=== PATIENT | female | born 2000 | race Caucasian/White ===

== ENCOUNTER 2024-03-26 11:06 | Outpatient (AMB) | payer OTHER, SELFPAY ==
--- OUTSIDE RECORDS SUMMARY | 2024-03-26 11:08 | XMS_ITS ---
Author Organization [facility] Address [address] [place] [address] Care Team Providers Care Measurement And Sensing Technician Name Role Phone Anna Falk Primary Care Provider UnavailDarleen Hui Unavailable [phone] REASON FOR VISIT Cancel Encounters Encounter Location Date Provider Diagnosis [facility] [address] [place] [address] 02/09/2024 Darleen Fair Plan Of Treatment No Information Progress Notes * Shakir KIMemeterioonDOB:2000 (23 yo F)Acc No.[id number]:02/09/2024 Patient:?Shakir Kimyson :2000???Age:23 Y???Sex:Female Address[address] [place], [address] * true * Date:? Generated for Ishi britney/Trish/eTransmitting on:?03/26/2024 11:07 AM EST
--- OUTSIDE RECORDS SUMMARY | 2024-03-26 11:08 | XMS_ITS | Patient Health Record ---
Author Organization [facility] Address [address] [place] [address] Care Team Providers Care Cushion Stuffer Name Role Phone Anna Falk Primary Care Provider Unavailab Darleen Mishra Unavailable [phone] Dmitriy Malik Unavailable [phone] Allergies Allergen (clinical drug ingredient) Drug/Non Drug Allergy documented on EMR Reaction Allergy Type Onset Date Status amoxicillin / clavulanate Augmentin Unknown Drug Allergy Active Reason For Referral No Information Medications Medication SIG (Take, Route, Frequency, Duration) Notes Start Date End Date Status metFORMIN HCl 500 MG 1 tablet with a dav l Orally Once a day for 30 day(s) Active Sertraline HCl 25 MG 1 tablet Orally Onc e a day for 30 day(s) Active Doxycycline Monohydrate 100 MG 1 capsule Orally Once a day for 10 days 01/26/2024 Active Social History Tobacco Use: Social History Observation Description Date Details (start date - stop date) Never Smoker NA - NA Tobacco Use/Smoking Question Answer Notes Are you a: nonsmoker Additional Findings: Tobacco Non-User Current no n-smoker Alcohol Screen Question Answer Notes Did you have a drink containing alcohol in the p ast year? No Points 0 Interpretation Negative Tobacco use other than smoking: Question Answer Notes Are you an other tobacco user? No Problems Problem Type SNOMED Code ICD Code Onset Dates Problem Status W/U Status Risk Notes Problem 161995179 Type 2 diabetes mellitus without complication, without long-term current use of insulin (E11.9) Active confirmed Vital Signs Height 5ft 3in in 01/26/2024 Weight 250 lbs 01/26/2024 BMI 44.28 kg/m2 01/26/2024 Encounters Encounter Location Date Provider Diagnosis [facility] [address] [address] 01/26/2024 Dmitriy Malik Cellulitis of left toe L03.032 and Abscess of toe of left foot L02.[address] [facility] [address] 02/09/2024 Darleen Fair Assessments Encounter Date Diagnosis (ICD Code) Assessment Notes Treatment Notes Treatment Clinical Notes Section Notes 01/26/2024 Cellulitis of left toe (ICD-10 - L03.032) 01/26/2024 Abscess of toe of left foot (ICD-10 - L02.612) Plan Of Treatment Pending Test Test Name Order Date X ray : Foot, right 3V 12/18/2021 Insurance Providers Payer Name Payer Address Payer Phone Subscriber Number Group Number Insured Name Patient Relationship to Insured Coverage Start Date Coverage End Date [employer] [address] [place] [phone] [id number] Shayy Kim Self - patient is the insured Medical (General) History Medical History History ICD Code Anxiety Depression type II diabetes Headaches/Migraines chronic sinusitis Surgical History Surgery Date(Month/Year) Hospitalization History Reason Date(Month/Year) [facility] (child 11/03
--- OUTSIDE RECORDS SUMMARY | 2024-03-26 11:08 | XMS_ITS ---
Author Organization [facility] Address [address] [place] [address] Care Team Providers Care Marketing Operations Intern Name Role Phone Anna Falk Primary Care Provider Unavailab Darleen Mishra Unavailable [phone] Dmitriy Malik Unavailable [phone] Allergies Allergen (clinical drug ingredient) Drug/Non Drug Allergy documented on EMR Reaction Allergy Type Onset Date Status amoxicillin / clavulanate Augmentin Unknown Drug Allergy Active REASON FOR VISIT pcp-01/2023, Possible Infection Medications Medication SIG (Take, Route, Frequency, Duration) [...] Are you an other tobacco user? No Vital Signs Height 5ft 3in in 01/26/2024 Weight 250 lbs 01/26/2024 BMI 44.28 kg/m2 01/26/2024 Encounters Encounter Location Date Provider Diagnosis [facility] [address] [place] [address] 01/26/2024 Dmitriy Malik Cellulitis of left toe L03.032 and Abscess of toe of left foot L02.612 Assessments Encounter Date Diagnosis (ICD Code) Assessment Notes Treatment Notes Treatment Clinical Notes Section Notes 01/26/2024 Cellulitis of left toe (ICD-10 - L03.032) 01/26/2024 Abscess of toe of left foot (ICD-10 - L02.612) Plan Of Treatment Medication Medication Name Sig Start Date Stop Date Notes Doxycycline Monohydrate 100 MG 1 capsule Orally Once a day for 10 days 01/26/2024 Next Appt Details Follow Up: 2 Weeks, Reason: Procedure Notes * Category Sub-Category Detail Notes Abscess incision and drainage Anesthesia 2% Lidocaine local anesthesic Location Medial nail border, TA Procedure A fine sterile eleva tor was used to loosen the eponychium, nail bed, nail plate and groove. A sterile nail splinter was then used to longitudinally section the nail. This section was removed. Any infected, devitilized or granulation tissue was removed. No underlying bone was identified. Bacitracin and sterile dressings applied, local wound care instructions were dispensed. Patient was informed of both conservative and future surgical procedures to prevent recurrence Progress Notes * JULIOSheaOB:2000 (23 yo F)Acc No.[id number]:01/26/2024 Progress Note Patient:?Shayy Kim Provider:?Dmitriy KingOMI :2000???Age:23 Y???Sex:Female D ate:01/26/2024 Address:[address] [place], [place] [id number] Pcp:Anna Falk Subjective: * Chief Complaints: * ???Pcp-3Possible Infec tion * HPI: ???Skin problems:?Nature:?tender, throbbing, swelling, redness.?Location:??Left, 1st.?Duration:?a week.?Onset/Cause:?stubbed toe.? * ROS:?General/Constitutional:?Nausea?denies.?Vomiting?denies.?Hunger Thirst?denies.?Loss appetite?denies.?Chills?denies.?Fatigue?denies.?Fever?denies.?Night Sweats?denies.?Unexplained weight loss?denies.?Unexplained weight gain?denies.?HEENTM:?Dentures?denies.?Dizziness?denies.?Glasses/contacts?denies.?Retinopathy?de nies.?Blurred/double vision?denies.?TMJ?denies.?Discharge/drainage?denies.?Implants?denies.?Sore throat?denies.?Dental implants?denies.?Hard of hearing ?denies.?Difficulty chewing/swallowing/speaking?denies.?Nose bleeds?denies.?Sore mouth?denies.?Respiratory:?On Oxygen?denies.?Pneumonia/pleurisy?denies.?Bronchitis?denies.?Emphysema?denies.?C oughing?denies.?Cough blood?denies.?Shortness of breath?denies.?Wheezing?denies.?Cardiovascular:?Pacemaker?denies.?MVP?denies.?WPW?denies.?CHF?denies.?Heart attack?denies.?Septal defect?denies.?Rapid beat?denies.?Chest pain ?denies.?Atrial Fib.?denies.?Murmur/Palpitations?denies.?Gastrointestinal:?Hemorrhoids?denies.?Stomach/Abdominal pain?denies.?Dark blood stool?denies.?Irritable bowel ?denies.?Constipation?denies.?Diarrhea?denies.?Hematology:?Swelling?denies.?Clots?denies.?Varicose Veins?denies.?Bruising?denies.?Bleeding problem?denies.?Genitourinary:?Blood urine?denies.?Frequent/Painfu/urination/bladder control?denies.?Kidney stones?denies.?Infection (UTI)?denies.?Nephropathy?denies.?sex trans dis (STD)?denies.?Prostate?denies.?Musculoskeletal:?Hammertoes?denies.?Bunions?denies.?Back Pain?admits.?Muscle Cramps/ Resting?denies.?Muscle cramps / walking?admits.?Generalized aches and pains?admits.?Weakness?denies.?Integ.:?[place]?denies.?Scars?denies.?Corns/calluses?denies.?Ingrown nails?admits.?Painful nails?admits.?Open Sores?denies.?Rashes?denies.?Neurologic:?Difficulty sleeping?denies.?Brain disorder?denies.?Numbness?denies.?Balance trouble?denies.?Confusion?denies.?Fainting/blackouts?denies.?Tingling?denies.?Tr emors?denies.? * Medical History:? * Surgical History:?Radha medeiros Surgical History * Hospitalization/Major Diagno stic Procedure:?[facility] (child 11/04/2023 * Family History:?Mother: hermelinda mo, foot problems, diagnosed with Other specified conditions influencing health status.?Father: alive, diagnosed with Diabetic - NIDDM, Unspecified essential hypertension.?Daughter(s): alive.?Paternal Grand Father: diagnosed with Diabetic - NIDDM.? * Social History:?Tobacco Use:?Tobacco Use/Smoking?Are you a:?nonsmoker ?Additional Findings: Tobacco Non-User?Current non-smoker ?Tobacco use other than smoking?Are you an other tobacco user??No ???Drugs/Alcohol:?Drugs?Have you used drugs other than those for medical reasons in the past 12 months??No ?Alcohol Screen?Did you have a drink containing alcohol in the past year??No ?Points?0 ?Interpretation?Negative ???Miscellaneous:?Caffeine: yes, frequency: , 1-2 cups per day. ?Children: yes, 2. ?no Exercise. ?Marital status: single. ?Occupation: Student. * Medications:?TakingmetFORMIN HCl 500 MG Tablet 1 tablet with a meal Orally Once a daySertraline HCl 25 MG Tablet 1 tablet Orally Once a dayMedication List reviewed and reconciled with the patientTaking metFORMIN HCl 500 MG Tablet 1 tablet with a meal Orally Once a dayTaking Sertraline HCl 25 MG Tablet 1 tablet Orally Once a dayMedication List reviewed and reconciled with the patient * Allergies:?Augmentinyes[Joao rgies Verified] Objective: * Vitals:?Ht: 5ft 3in, Wt:250, BMI:44.28, Shoe size: 9.5W, BS: 117, Ht-cm: 160.02 cm, Wt-k.4 kg. * Examination: ???Ophthalmology Referral: ?DIABETES EYE EXAM?Abscess/infected nail: ?INSPECTION? Reveals nail incurvation, pain on palpation, groove laceration, inflammation, malodor, localized cellulitis, and purulent abscess with pre- operative size of approximately ( 1-2 ) mm square without exposed bone, Medial nail border, TA.? Assessment: * Assessment: 1.?Cellulitis of left toe - L03.032 (Primary)?2.?Abscess of toe of left foot - L02.612? Plan: * Treatment: * Procedures:?Abscess incision and drainage:?Location?Medial nail border, TA.?Anesthesia?2% Lidocaine local anesthesic.?Procedure?A fine sterile elevator was used to loosen the eponychium, nail bed, nail plate and groove. A sterile nail splinter was then used to longitudinally section the nail. This section was removed. Any infected, devitilized or granulation tissue was removed. No underlying bone was identified. Bacitracin and sterile dressings applied, local wound care instructions were dispensed. Patient was informed of both conservative and future surgical procedures to prevent recurrence.? * Procedure Codes:?23607 DRAIN AGE OF SKIN ABSCESS, Modifiers: TA * Follow Up:?2 Weeks * Images: * Sign off status: Completed true * Provider:?Dmitriy Malik DPM Date:? 024 Generated for Sridhar tan/Trish/Kayceeitting on:?03/26/2024 11:07 AM EST History and Physical Notes * HPI (History of Present Illness) Category Sub-Category Detail Notes Category Not es Skin problems Nature: tender, throbbing, swelling , redness Location: Left, 1st Duration: a week Onset/Cause: stubbed toe Examination Category Sub-Category Detail Notes Category Not es Ophthalmology Referral DIABETES EYE EXAM Diabeti c Retinopathy Screening:: Yes Findings of Diabetic Eye Exam:: no retin opathy Abscess/infected nail INSPECTION Reveals na il incurvation, pain on palpation, groove laceration, inflammation, malodor, localized cellulitis, and purulent abscess with pre-operative size of approximately ( 1-2 ) mm square without exposed bone, Medial nail border, TA
--- NOTE | 2024-03-26 11:09 | A.OFFPC_ITS ---
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 Note: patient here for new patient visit Claim Examiner Required: No Is last menstrual period known: Yes Last menstrual period: 02/17/24 Post menopausal: No Patient : No Allergies amoxicillin [From Augmentin] Allergy (Mild, Verified 03/26/24 11:29) Itching clavulanic acid [From Augmentin] Allergy (Mild, Verified 03/26/24 11:29) Itching Medication List - Last Reconciled 03/26/24 by Simona Marx CNP metformin 1,000 mg PO DAILY sertraline 50 mg PO DAILY Tobacco use date assessed: 03/26/24 Dental Screening Dental Screen Date: 03/26/24 Did you have a dental visit in the last 12 months?: Yes Did you have a dental problem in the last 6 months where you did not have access to dental care?: No Was dental information given to patient?: Patient has dentist HPI HPI Comments History of Present Illness Details 23-year-old female presents to establish care. Prior PCP? - Anna Berry NP Last office visit/CPE/labs - 03/2023 Acute issue(s) Type 2 diabetes -on metformin 1000 mg daily Anxiety and depression -on sertraline 50 mg daily Past Medical History - Type 2 diabetes - Anxiety, depression - Preeclampsia (last , did not require medication treatment) - Myopia (wear prescription glasses) - PCOS Surgical History - None Family History - Dad: HTN, HLD, DM, substance abuse, an xiety, depression - PGF: HTN, HLD, DM, anxiety, depression - PGM: Alzheimer's Social History - Nonsmoker. Does not vape. Does not [place]. Denies recreational drug use - Has been making healthy dietary choice s. She walks everyday. She has trouble falling and staying asleep, average sleep is 6 hours; attributes to having a 5 m onths old daughter and racing thoughts secondary to anxiety - She has a 5 months old daughter and 3. 5 years old son - She notes that she is sexually active, in a monogamous relationship, has no concern for STDs Health maintenance - Last eye exam was on 05/2023 at [facility]: Normal. She will sign a release for her PCP to obtain eye record - Last dental visit was in 07/2023 - Last Tdap was in August 2023 - Up-to-date on the flu vaccine - Last pap smear test was with [facility] r[facility] in 05/2023: normal Labs - Last hemoglobin A1c: about a year ago: 6.2% [facility] Medical History (Updated 03/26/24 @ 11:58 by Simona Marx CNP) Type 2 diabetes mellitus Depression Anxiety Family History (Updated 03/26/24 @ 11:24 by Salina Shen) Father Substance abuse Mental illness in member of household High blood pressure High cholesterol Diabetes Paternal Aunt Mental illness in member of household Paternal Grandfather Mental illness in member of household High blood pressure High cholesterol Diabetes Paternal Uncle Mental illness in member of household Social History Housing: House Patient Tobacco Use Status: Never used Tobacco e-Cigarette/Vaping Use: Never Used Second Hand Smoke Exposure: No service: No Current occupational status: employed 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 1. Little interest or pleasure in doing things: several days 2. Feeling down, depressed, or hopeless: several days 3. Trouble falling or staying asleep, or sleeping too much: nearly every day 4. Feeling tired or having little energy: nearly every day 5. Poor appetite or overeating: not at all 6. Feeling bad about yourself - or that you are a failure or have let yourself or your family down: not at all 7. Trouble concentrating on things, such as reading the newspaper or watching television: nearly every day 8. Moving or speaking so slowly that other people could have noticed. Or the opposite - being so fidgety or restless that you have been moving around a lot more than usual: several days 9. Thoughts that you would be better off or of hurting yourself in some way: not at all Total score: 12 Depression Screening Interpretation: Positive Depression Screening Follow-up: Existing condition and In treatment Depression Screening Done: Yes 48395 - PHQ-9 Billing: Yes Source: Developed by Drs. Eh Deras, Naty Pop, Jamal Frank and colleagues, with an educational coleman from [employer]. Thrive Questionnaire Date Thrive assessed: 03/26/24 I am a: Patient What is your living situation today?: I have a steady place to live Within the past 12 months, did the food you bought not last and you didn't have the money to get more?: Never true Within the past 12 months, did you worry whether your food would run out before you got money to buy more?: Never true Do you have trouble paying for medicines?: No Do you have trouble getting transportation to medical appointments?: No Do you have trouble paying your heating and electricity bill?: No Do you have trouble taking care of your child, family member or friend?: No Do you have trouble with day-to-day activities such as bathing, preparing meals, shopping, managing finances, etc.?: No Are you currently unemployed and looking for a job?: No Are you interested in more education?: No Please select the resources that you would like help with: None Currently or been in a relationship where the following occur: No concerns reported THRIVE Score: 0 AUDIT C Alcohol Use Questionnaire (AUDIT-C) 1. How often do you have a drink containing alcohol?: Never Total Score: 0 Score Reviewed/Action Taken: Yes YUKO-7 AMB Questionnaire YUKO-7 Date YUKO - 7 assessed: 03/26/24 Feeling nervous, anxious, or on edge: 3 = Nearly every day Not being able to stop or control worryin = More than half the days Worrying too much about different things: 2 = More than half the days Trouble relaxin = More than half the days Being so restless that it is hard to sit still: 1 = Several days Becoming easily annoyed or irritable: 3 = Nearly every day Feeling afraid as if something awful might happen: 0 = Not at all Total YUKO-7 score (0-4 normal; 5-9 mild; 10-14 moderate; 15-21 severe): 13 Source: Developed by Drs. Eh Deras, Naty Pop, Jamal Frank and colleagues, with an educational coleman from [employer]. YUKO-7 Assessment Billing YUKO-7 Assessment Tool: YUKO-7 Assessment 37033 Review of Systems Const Details: Denies chills, Denies fatigue, Denies fever(s), Denies headache(s) and Denies weakness HEENT Denies change in vision, Denies dizziness, Denies headache(s), Denies hearing loss, Denies nasal congestion, Denies sinus pain, Denies sinus pressure and Denies sore throat Card Denies chest pain, Denies lightheadedness, Denies dyspnea and Denies other (palpitations) Resp Denies cough, Denies dyspnea and Denies wheezing GI Denies abdominal pain, Denies melena, Denies hematochezia, Denies change in bowel habits, Denies dyspepsia and Denies nausea Denies hematuria and Denies dysuria Musc Denies abnormal gait, Denies myalgias, Denies arthralgias, Denies numbness and Denies tingling Skin/Breast Denies rash, Denies unusual bruising and Denies wounds Neuro Denies abnormal gait, Denies dizziness, Denies headache(s), Denies memory loss, Denies numbness, Denies Sensory deficit (Neuro), Denies tingling and Denies weakness Psych Denies anxiety, Denies depression and Denies memory loss Endo Denies cold intolerance, Denies fatigue, Denies heat intolerance, Denies polydipsia and Denies polyuria Brenden/Lymph Denies easy bleeding and Denies easy bruising Aller/Immun Denies wheezing Physical exam (Primary Care) Vital Signs: Last Vital Signs Temp 97.4 F 03/26/24 11:19 Pulse 71 03/26/24 11:19 Resp 16 03/26/24 11:19 BP 150/72 H 03/26/24 11:19 Pulse Ox 97 03/26/24 11:19 Oxygen Delivery Method Room Air 03/26/24 11:19 BMI result Body Mass Index 47.5 Tobacco/Smoking Status: Tobacco use Status Tobacco use date assessed 03/26/24 03/26/24 11:19 Patient Tobacco Use Status Never used Tobacco 03/26/24 11:19 e-Cigarette/Vaping Use Never Used 03/26/24 11:19 PHQ-9: PHQ-9 Score PHQ-9: Total score 12 03/26/24 11:11 Depression Screening Interpretation: Positive Depression Screening Follow-up: Existing condition and In treatment Thrive Assessment: Date of Thrive Assessment Date Thrive assessed 03/26/24 03/26/24 11:11 Currently or been in a relationship where the following occur: No concerns reported Const Other: General: no acute distress, well developed, alert and awake Nutritional Appearance: well nourished Orientation/consciousness: patient oriented x3 [facility] Head: Yes normocephalic and Yes atraumatic Ears: hearing grossly normal bilaterally and TM's normal bilaterally General nose exam: Normal external nose present and Normal nares present Mouth: Normal oral and palatal mucosa present and moist mucous membranes Teeth and gingiva: dentition normal Throat: Yes oropharynx normal Eyes Pupils: Equal, round and reactive pupils present and Pupil accommodation reflex normal EOM: EOMs intact bilaterally Neck Neck: Yes normal visual inspection, Yes no lymphadenopathy and Yes trachea midline Thyroid: Thyroid normal Carotids: no bruits Lymphatic: no lymphadenopathy noted Chest Chest palpation & inspection: normal inspection of the chest Resp Effort & Inspection: normal respiratory effort Auscultation: clear to auscultation bilaterally Cardio Rate: regular rate Rhythm: regular rhythm Heart sounds: S1 normal heart sound present, S2 normal heart sound present, no gallops, no murmurs and no rubs Bruits: no abdominal aortic bruits and no carotid bruits GI Palpation (GI): No Abdominal aortic bruit present, Soft to palpation, nontender, No hepatosplenomegaly present and No Rebound tenderness present Auscultation: normal bowel sounds General: Yes no CVA tenderness Back/Spine/Pelvis Back: no CVA tenderness Cervical Spine: cervical ROM normal and No Cervical spine tenderness Thoracic/Lumbar Spine: thoraco-lumbar ROM normal, No pain with thoraco-lumbar ROM, No thoracic spinal tenderness and No lumbar spinal tenderness Skin General: warm and dry. Normal skin color. Normal skin turgor Lesions: no lesions Rashes: no rashes Trauma: no lacerations or abrasions Wounds: no wounds Nails: normal Neuro General: patient oriented x3, gait normal and CN's II-XI intact bilaterally Cranial nerves: Yes Equal, round and reactive pupils present Cognition (Neuro): normal cognition Gait exam (Neuro): Normal gait present Motor exam (neuro): 5/5 motor strength present throughout Sensory Exam: No Sensory deficit (Neuro) Deep tendon reflexes (DTR's): Right patellar reflex intensity grade: 2+ and Left patellar reflex intensity grade: 2+ Extrem General: Yes normal to inspection, No edema and No calf tenderness Psych Appearance: grossly normal Affect: normal affect Attitude: cooperative Thought process: Normal thought process present Results AMB Hemoglobin A1c AMB Hemoglobin A1c 9.8 % Last Edit by Salina Shen on 03/26/24 12:14 Coding Level of Care Code New Pt Level 4 (96908) New Pt Prev Care 18-39yr(05129 Diagnoses Normal physical examination, routine Z00.00 Elevated blood pressure reading without diagnosis of hypertension R03.0 Type 2 diabetes mellitus E11.9 Anxiety and depression F41.9; F32.A Morbid obesity with BMI of 45.0-49.9, adult E66.01; Z68.42 Laboratory tests ordered as part of a complete physical exam (CPE) Z00.00 Additional Codes YUKO-7 Assessment Billing - YUKO-7 Assessment Tool: YUKO-7 Assessment 21066 ([id number]) PHQ-9 - 91729 - PHQ-9 Billing: Yes ([id number]) Assessment & Plan Assessment & Plan (1) Normal physical examination, routine: Code(s): Z00.00 - Encounter for general adult medical examination without abnormal findings Category: Medical Plan: No significant functional limitation noted. Healthy diet and routine exercise encouraged. Advised to get lab work done and follow-up in 2 weeks for elevated blood pressure and labs review. Return sooner with symptoms or concerns. Verbalized understanding and agreed with the plan. (2) Elevated blood pressure reading without diagnosis of hypertension: Code(s): R03.0 - Elevated blood-pressure reading, without diagnosis of hypertension Category: Medical Plan: Resting blood pressure is 138/90, above goal of less than 130/80. She has history of preeclampsia with no history antihypertensive. Hypertension runs on her dad's side of the family. Low-sodium diet encouraged. Will continue to monitor. Follow-up in 2 weeks. Verbalized understanding and agreed with the plan. (3) Type 2 diabetes mellitus: Code(s): E11.9 - Type 2 diabetes mellitus without complications Category: Medical Plan: A1c today is 9.8%, within goal of less than 7.0%. Previous A1c was 6.2%. Will increase metformin to 850 mg twice daily and start semaglutide 0.25 mg weekly; advised to take as prescribed. ADA diet and routine exercise encouraged. Will recheck A1c in 3 months. Verbalized understanding and agreed with the plan. (4) Anxiety and depression: Code(s): F41.9 - Anxiety disorder, unspecified; F32.A - Depression, unspecified Category: Medical Plan: Continue current treatment regimen. Instructed on sleep hygiene. Routine exercise encouraged. Will continue to monitor. Follow-up with worsening or new symptoms. Verbalized understanding and agreed with the plan. (5) Morbid obesity with BMI of 45.0-49.9, adult: Code(s): E66.01 - Morbid (severe) obesity due to excess calories; Z68.42 - Body mass index [BMI] 45.0-49.9, adult Category: Medical Plan: She currently weighs 268 lb. BMI is 47.5. She requests Ozempic for weight m anagement which she was on before her last . She would consult with [facility] [place] if Ozempic does not improve her weight. Will start Ozempic 0.25 mg SC weekly. Instructed on the risks, benefits, and potential adverse reactions of the medication. Will reassess medication tolerance and weight loss, and make changes as needed. Verbalized understanding and agreed with the plan. (6) Laboratory tests ordered as part of a complete physical exam (CPE): Code(s): Z00.00 - Encounter for general adult medical examination without abnormal findings Category: Medical Plan: Fasting labs ordered as part of a complete physical exam. Advised to fast for at least 10 hours before getting labs drawn. May drink water. Verbalized understanding and agreed with treatment plan. Orders: Orders Complete Blood Count Auto Diff Today Z00.00 - Encounter for general adult medical examination without abnormal findings Comprehensive [place]. Panel Fast Today Z00.00 - Encounter for general adult medical examination without abnormal findings TSH reflex Free T4 Today Z00.00 - Encounter for general adult medical examination without abnormal findings UA CC w/rflx Micro + Cult Today Z00.00 - Encounter for general adult medical examination without abnormal findings Microalbumin, Random (w Creat) Today Z00.00 - Encounter for general adult medical examination without abnormal findings AMB Hemoglobin A1c Today Z13.9 - Encounter for screening, unspecified Lipid Panel Today Z00.00 - Encounter for general adult medical examination without abnormal findings Medications: New semaglutide (Ozempic) for 4 weeks 0.25 mg (0.368 mL) subcut QWEEK 3 mL 3RF metformin 850 mg PO BID 30 days 60 tabs 3RF
[2024-03-26 11:19] VITALS: BP 150/72; PULSE 71; RESP 16; TEMP 36.3; O2SAT 97; BMI 47.5
[2024-03-26 11:42] VITALS: BP 138/90
== END 2024-03-26 12:18 | disposition home or self-care (01) ==
PROVIDERS: PCP Nurse Practitioner Family; Visit Provider Nurse Practitioner Family
DX: Z00.00 Encounter for general adult medical examination without abnormal findings (principal); E11.9 Type 2 diabetes mellitus without complications; E66.01 Morbid (severe) obesity due to excess calories; Z68.42 Body mass index [BMI] 45.0-49.9, adult; R03.0 Elevated blood-pressure reading, without diagnosis of hypertension; F41.9 Anxiety disorder, unspecified; F32.A Depression, unspecified

== ENCOUNTER → 2024-03-26 11:06 | Outpatient (BNVA) | payer OTHER, SELFPAY | PROVIDERS: PCP Internal Medicine; Visit Provider Nurse Practitioner Family | DX: Z00.00 Encounter for general adult medical examination without abnormal findings (principal); R03.0 Elevated blood-pressure reading, without diagnosis of hypertension; E11.9 Type 2 diabetes mellitus without complications; F41.9 Anxiety disorder, unspecified; F32.A Depression, unspecified; E66.01 Morbid (severe) obesity due to excess calories; Z68.42 Body mass index [BMI] 45.0-49.9, adult; Z79.84 Long term (current) use of oral hypoglycemic drugs | CPT/HCPCS: 83036; 96127 ==

== ENCOUNTER 2024-05-05 06:36 | Outpatient (REF) | payer OTHER, SELFPAY ==
[2024-05-05 11:34] LABS: Appearance Urine Clear; Color Urine Yellow; Glucose Urine UA Negative (Negative); Leukocyte Esterase Urine Trace (Negative); Nitrite Urine Negative (Negative); UMIC TRIGGER UACC YES; Urine Blood Negative (Negative); Urine Ketones Negative (Negative); Urine Protein 30 (1+) mg/dL (Neg-Trace)
[2024-05-05 11:41] LABS: Bacteria Urine Trace (None Seen); Hyaline Casts Urine 0-2 /LPF (0-2); RBC Urine 0-2 /HPF (0-2); WBC Urine 0-5 /HPF (0-5)
[2024-05-05 11:56] LABS: MANUAL DIFF FLAG NO
[2024-05-05 12:02] LABS: Basophils Absolute Auto 0.1 X10*3/uL (0.0-0.2); Basophils Percent Auto 0.6 % (0-2); Eosinophils Absolute Auto 0.2 X10*3/uL (0.0-0.4); Eosinophils Percent Auto 1.9 % (0-4); Hematocrit 43.6 % (37.0-47.0); Imm Gran Abs Auto 0.02 X10*3/uL (0.00-0.03); Imm Gran Pct Auto 0.2 % (0.0-0.4); Lymphocytes Absolute Auto 3.1 X10*3/uL (1.2-4.9); Lymphocytes Percent Auto 33.8 % (20-40); Mean Corpuscular HGB Conc 32.1 g/dl (31.0-35.0); Mean Corpuscular Hemoglobin 26.4 pg (27.0-33.0); Mean Corpuscular Volume 82.3 fL (80.0-98.0); Monocytes Absolute Auto 0.5 X10*3/uL (0.1-1.2); Monocytes Percent Auto 5.2 % (2-11); Neutrophils Absolute Auto 5.3 x10*3/uL (2.0-8.3); Neutrophils Percent Auto 58.3 % (45-73); Platelet Count 311 X10*3/uL (160-400); Red Cell Distribution Width 13.3 % (11.0-16.0); White Blood Count 9.1 X10*3/uL (4.8-10.8)
[2024-05-05 12:28] LABS: Alanine Aminotransferase 46 U/L (0-31); Albumin Level 4.4 g/dL (3.5-5.0); Alkaline Phosphatase 90 U/L (39-117); Anion Gap 16 (12-20); Aspartate Amino Transferase 39 U/L (5-31); Bilirubin Total 0.3 mg/dL (0.0-1.0); Blood Urea Nitrogen 13 mg/dL (9-16); Calcium 9.8 mg/dL (8.4-10.2); Carbon Dioxide 22 mmol/L (22-29); Chloride 104 mmol/L (96-108); Cholesterol 223 mg/dL (<200); Estimated Glomerular Filt Rate > 60; Glucose Fasting 228 mg/dL (60-99); HDL Cholesterol 44 mg/dL (>40); LDL Cholesterol Calculated 113 mg/dL (<100); Potassium 4.4 mmol/L (3.3-5.1); Sodium 138 mmol/L (135-145); Total Protein 7.9 g/dL (6.5-8.0); Triglycerides 334 mg/dL (<150)
[2024-05-05 12:29] LABS: Creatinine Urine 145.29 mg/dL; Microalbum/Creatinine Ratio Ur 110.8 ug/mg cr (<30)
== END 2024-05-05 06:37 | disposition home or self-care (01) ==
LOC: HO.HMGCLDS 06:36
PROVIDERS: PCP Nurse Practitioner Family; Visit Provider Nurse Practitioner Family
DX: Z00.00 Encounter for general adult medical examination without abnormal findings (principal); Z13.6 Encounter for screening for cardiovascular disorders
CPT/HCPCS: 36415; 80053; 80061; 81001; 82043; 82570; 84443; 85025

== ENCOUNTER 2024-05-09 15:38 | Outpatient (AMB) | payer OTHER, SELFPAY ==
--- NOTE | 2024-05-09 15:42 | MHC.PC.OV ---
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: No Is last menstrual period known: No (taking meds to induce it) Post menopausal: No Patient : No Allergies amoxicillin [From Augmentin] Allergy (Mild, Verified 05/09/24 16:09) Itching clavulanic acid [From Augmentin] Allergy (Mild, Verified 05/09/24 16:09) Itching Medication List - Last Reconciled 05/09/24 by Simona Marx CNP medroxyprogesterone 10 mg PO DAILY metformin 850 mg PO BID 30 days semaglutide (Ozempic) 0.25 mg (0.368 mL) subcut QWEEK sertraline 50 mg PO DAILY Tobacco use date assessed: 05/09/24 Dental Screening Dental Screen Date: 05/09/24 Did you have a dental visit in the last 12 months?: Yes Did you have a dental problem in the last 6 months where you did not have access to dental care?: No Was dental information given to patient?: Patient has dentist HPI HPI Comments History of Present Illness Details 23-year-old female presents for elevated blood pressure and review of recent labs follow-up. She admits to taking her medications as prescribed without adverse reactions. She offers no complaints and denies acute symptoms at this time. She is on Ozempic for diabetes and with management. She has lost 9 lb since she started taking Ozempic at the end of March. She requests a dose increase. She notes controlled anxiety and depressive symptoms. [facility] Medical History (Updated 05/09/24 @ 16:24 by Simona Marx CNP) Type 2 diabetes mellitus Depression Anxiety Family History (Updated 03/26/24 @ 11:24 by Salina Shen) Father Substance abuse Mental illness in member of household High blood pressure High cholesterol Diabetes Paternal Aunt Mental illness in member of household Paternal Grandfather Mental illness in member of household High blood pressure High cholesterol Diabetes Paternal Uncle Mental illness in member of household Social History Housing: House Patient Tobacco Use Status: Never used Tobacco e-Cigarette/Vaping Use: Never Used Second Hand Smoke Exposure: No service: No Current occupational status: employed 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 1. Little interest or pleasure in doing things: several days 2. Feeling down, depressed, or hopeless: several days 3. Trouble falling or staying asleep, or sleeping too much: nearly every day 4. Feeling tired or having little energy: nearly every day 5. Poor appetite or overeating: not at all 6. Feeling bad about yourself - or that you are a failure or have let yourself or your family down: not at all 7. Trouble concentrating on things, such as reading the newspaper or watching television: nearly every day 8. Moving or speaking so slowly that other people could have noticed. Or the opposite - being so fidgety or restless that you have been moving around a lot more than usual: not at all 9. Thoughts that you would be better off or of hurting yourself in some way: not at all Total score: 11 Depression Screening Interpretation: Positive Depression Screening Follow-up: Existing condition Depression Screening Done: Yes Source: Developed by Drs. Eh Deras, Naty Pop, Jamal Frank and colleagues, with an educational coleman from [employer]. Thrive Questionnaire Date Thrive assessed: 03/26/24 I am a: Patient What is your living situation today?: I have a steady place to live Within the past 12 months, did the food you bought not last and you didn't have the money to get more?: Never true Within the past 12 months, did you worry whether your food would run out before you got money to buy more?: Never true Do you have trouble paying for medicines?: No Do you have trouble getting transportation to medical appointments?: No Do you have trouble paying your heating and electricity bill?: No Do you have trouble taking care of your child, family member or friend?: No Do you have trouble with day-to-day activities such as bathing, preparing meals, shopping, managing finances, etc.?: No Are you currently unemployed and looking for a job?: No Are you interested in more education?: No Please select the resources that you would like help with: None Currently or been in a relationship where the following occur: No concerns reported THRIVE Score: 0 AUDIT C Alcohol Use Questionnaire (AUDIT-C) 1. How often do you have a drink containing alcohol?: Never 2. How many drinks containing alcohol do you have on a typical day when you are drinking?: 1 or 2 3. How often do you have six or more drinks on one occasion?: Never Total Score: 0 YUKO-7 AMB Questionnaire YUKO-7 Date YUKO - 7 assessed: 03/26/24 Feeling nervous, anxious, or on edge: 2 = More than half the days Not being able to stop or control worryin = Several days Worrying too much about different things: 1 = Several days Trouble relaxin = More than half the days Being so restless that it is hard to sit still: 1 = Several days Becoming easily annoyed or irritable: 2 = More than half the days Feeling afraid as if something awful might happen: 0 = Not at all Total YUKO-7 score (0-4 normal; 5-9 mild; 10-14 moderate; 15-21 severe): 9 Source: Developed by Drs. Eh Deras, Naty Pop, Jamal Frank and colleagues, with an educational coleman from [employer]. Review of Systems Const Details: Const Denies chills, Denies fatigue, Denies fever(s), Denies headache(s) and Denies weakness ENT Denies dizziness and Denies headache(s) Card Denies chest pain, Denies lightheadedness, Denies dyspnea and Denies other (Palpitations) Resp Denies cough, Denies dyspnea, Denies wheezing and Denies other ( shortness of breath) GI Denies abdominal pain, Denies melena, Denies hematochezia, Denies change in bowel habits, Denies dyspepsia and Denies nausea Denies hematuria and Denies dysuria Musc Denies abnormal gait, Denies myalgias, Denies arthralgias, Denies numbness and Denies tingling Skin/Breast Denies rash, Denies unusual bruising and Denies wounds Neuro Denies abnormal gait, Denies dizziness, Denies headache(s), Denies memory loss, Denies numbness, Denies Sensory deficit (Neuro), Denies tingling and Denies weakness Psych Denies anxiety, Denies depression, Denies memory loss Endo Denies cold intolerance, Denies fatigue, Denies heat intolerance, Denies polydipsia and Denies polyuria Aller/Immun Denies wheezing Physical exam (Primary Care) Vital Signs: Last Vital Signs Temp 98.4 F 05/09/24 15:47 Pulse 9 L 05/09/24 15:47 Resp 16 05/09/24 15:47 BP 130/80 05/09/24 16:20 Pulse Ox 99 05/09/24 15:47 Oxygen Delivery Method Room Air 05/09/24 15:47 BMI result Body Mass Index 45.9 Tobacco/Smoking Status: Tobacco use Status Tobacco use date assessed 05/09/24 05/09/24 15:50 Patient Tobacco Use Status Never used Tobacco 05/09/24 15:44 e-Cigarette/Vaping Use Never Used 05/09/24 15:44 PHQ-9: PHQ-9 Score PHQ-9: Total score 11 05/09/24 16:09 Depression Screening Interpretation: Positive Depression Screening Follow-up: Existing condition Thrive Assessment: Date of Thrive Assessment Date Thrive assessed 03/26/24 05/09/24 15:44 Currently or been in a relationship where the following occur: No concerns reported Const Other: General: no acute distress and well developed Nutritional Appearance: well nourished Orientation/consciousness: patient oriented x3 HENMT Head: Yes normocephalic and Yes atraumatic Eyes General: appearance normal, both eyes and all related structures Pupils: Equal, round and reactive pupils present EOM: EOMs intact bilaterally Resp Effort & Inspection: normal respiratory effort Auscultation: clear to auscultation bilaterally Cardio Rate: regular rate Rhythm: regular rhythm Heart sounds: S1 normal heart sound present, S2 normal heart sound present, no gallops, no murmurs and no rubs GI Palpation (GI): No Abdominal aortic bruit present, Soft to palpation, nontender, No hepatosplenomegaly present and No Rebound tenderness present Auscultation: normal bowel sounds General: Yes no CVA tenderness Back/Spine/Pelvis Back: no CVA tenderness Cervical Spine: cervical ROM normal and No Cervical spine tenderness Thoracic/Lumbar Spine: thoraco-lumbar ROM normal, No pain with thoraco-lumbar ROM, No thoracic spinal tenderness and No lumbar spinal tenderness Extrem General: Yes normal to inspection, No edema and No calf tenderness Skin General: warm and dry. Normal skin color. Normal skin turgor Neuro General: patient oriented x3, gait normal and no focal neuro deficit Cranial nerves: Yes Equal, round and reactive pupils present Cognition (Neuro): normal cognition Gait exam (Neuro): Normal gait present Sensory Exam: No Sensory deficit (Neuro) Psych Appearance: grossly normal Affect: normal affect Attitude: cooperative Thought process: Normal thought process present Coding Level of Care Code Est Pt Level 4 (99209) Diagnoses Elevated blood pressure reading without diagnosis of hypertension R03.0 Hyperlipidemia E78.5 Transaminitis R74.01 Microalbuminuria R80.9 Type 2 diabetes mellitus E11.9 Assessment & Plan Assessment & Plan (1) Elevated blood pressure reading without diagnosis of hypertension: Code(s): R03.0 - Elevated blood-pressure reading, without diagnosis of hypertension Category: Medical Plan: Resting blood pressure is 130/80, within goal of less than 140/90. Low-sodium diet and routine exercise encouraged. We will continue to monitor. Verbalized understanding and agreed with the plan. (2) Hyperlipidemia: Code(s): E78.5 - Hyperlipidemia, unspecified Category: Medical Plan: Recent triglycerides, total cholesterol, and LDL levels are elevated, 333, 223, and 113 respectively. She admits to consuming significant amount of saturated fats. Advised to limit foods high in saturated fat and avoid foods high in trans fat. Routine exercise encouraged. Will recheck lipid panel levels in 2 months. Verbalized understanding and agreed with the plan. (3) Transaminitis: Code(s): R74.01 - Elevation of levels of liver transaminase levels Category: Medical Plan: Recent AST and ALT levels a slightly elevated, 39 and 46 respectively. Fatty liver disease is possible. Advised to avoid fatty or greasy foods. Routine exercise encouraged. Will recheck lipid panel. Verbalized understanding and agreed with the plan. (4) Microalbuminuria: Code(s): R80.9 - Proteinuria, unspecified Category: Medical Plan: Recent microalbumin/creatinine ratio is elevated, 110.8. Likely attributed to diabetes or dehydration. She admits to poor hydration. Adequate hydration encouraged. Will recheck urine microalbumin/creatinine ratio in 2 months. Verbalized understanding and agreed with the plan. (5) Type 2 diabetes mellitus: Code(s): E11.9 - Type 2 diabetes mellitus without complications Category: Medical Plan: Ozempic increased to the 0.5 mg daily; advised to take as prescribed. Continue to take metformin as prescribed. ADA diet and routine exercise encouraged. Will check A1c in 2 months. Verbalized understanding and agreed with the plan. Orders: Orders Lipid Panel Today E78.5 - Hyperlipidemia, unspecified Liver Panel Today R03.0 - Elevated blood-pressure reading, without diagnosis of hypertension, R74.01 - Elevation of levels of liver transaminase levels Microalbumin, Random (w Creat) Today R80.9 - Proteinuria, unspecified Medications: Changed From semaglutide (Ozempic) for 4 weeks 0.25 mg (0.368 mL) subcut QWEEK 3 mL 3RF To semaglutide (Ozempic) for 4 weeks 0.5 mg (0.736 mL) subcut QWEEK 3 mL 3RF
[2024-05-09 15:47] VITALS: BP 138/88; PULSE 89; RESP 16; TEMP 36.9; O2SAT 99; BMI 45.9
[2024-05-09 16:20] VITALS: BP 130/80
== END 2024-05-09 16:23 | disposition home or self-care (01) ==
PROVIDERS: PCP Nurse Practitioner Family; Visit Provider Nurse Practitioner Family
DX: R03.0 Elevated blood-pressure reading, without diagnosis of hypertension (principal); E11.69 Type 2 diabetes mellitus with other specified complication; E78.5 Hyperlipidemia, unspecified; R74.01 Elevation of levels of liver transaminase levels; R80.9 Proteinuria, unspecified

== ENCOUNTER → 2024-05-09 15:38 | Outpatient (BNVA) | payer OTHER, SELFPAY | PROVIDERS: PCP Nurse Practitioner Family; Visit Provider Nurse Practitioner Family ==

== ENCOUNTER 2024-07-14 09:04 | Outpatient (REF) | payer OTHER, SELFPAY ==
--- OUTSIDE RECORDS SUMMARY | 2024-07-14 09:06 | XMS_ITS ---
Author Organization [facility] Address [address] [place] [address] Care Team Providers Care Ups Driver Name Role Phone Anna Falk Primary Care Provider Darleen Johnson [phone] REASON FOR VISIT Cancel Encounters Encounter Location Date Provider Diagnosis [facility] [address] [place] [address] 02/09/2024 Darleen Fair Plan Of Treatment No Information Progress Notes * Shakir KIMemeterioonDOB:2000 (23 yo F)Acc No.[id number]:02/09/2024 Patient:?Shayy Kim :2000???Age:23 Y???Sex:Female [address] [place], [address] * true * Date:? Generated for Printi britney/Trish/eTransmitting on:?07/14/2024 09:06 AM EDT
--- OUTSIDE RECORDS SUMMARY | 2024-07-14 09:06 | XMS_ITS ---
Author Organization [facility] Address [address] [place] [address] Care Team Providers Care Chain Carrier Name Role Phone Anna Falk Primary Care Provider UnavailDarleen Hui [phone] Encounters Encounter Location Date Provider Diagnosis [facility] [address] [place] [address] 02/10/2024 Darleen Fair Plan Of Treatment No Information Progress Notes * Larry KIMonDOB:2000 (24 yo F)Acc No.[id number]:02/10/2024 Progress Notes Patient:?Shayy KIM Provider:?Darleen Fair DPM :2000???Age:23 Y???Sex:Female D ate:02/10/2024 Address: [address] [id number] Pcp:Anna Falk Subjective: * Chief Complaints: * ??? * Medical History:? Objective: * Vitals:? Assessment: Plan: * Treatment: * Images: * The named appointment provid er may or may not be the originator of this progress note, and it is not deemed complete until electronically signed by the appointment provider. Sign off status: Pending * Provider:?Darleen Fair DPM Date:?11/2023 Generated for Printi ng/Fakareng/eTransmitting on:?07/14/2024 09:06 AM EDT
--- OUTSIDE RECORDS SUMMARY | 2024-07-14 09:06 | XMS_ITS | Patient Health Record ---
Author Organization [facility] Address [address] [place] [address] Care Team Providers Care Program Assistant Name Role Phone Anna Falk Primary Care Provider Unavailab Darleen Mishra Unavailable [phone] Dmitriy Malik Unavailable [phone] Allergies Allergen (clinical drug ingredient) Drug/Non Drug [...] Problem Status W/U Status Risk Notes Problem [id number] Type 2 diabetes mellitus without complication, without long-term current use of insulin (E11.9) Active confirmed Vital Signs Height 5ft 3in in 01/26/2024 Weight 250 lbs 01/26/2024 BMI 44.28 kg/m2 01/26/2024 Encounters Encounter Location Date Provider Diagnosis [facility] [address] [address] 01/26/2024 Dmitriy Malik Cellulitis of left toe L03.032 and Abscess of toe of left foot L02.[address] [facility] [address] 02/09/2024 Darleen Fair Assessments Encounter Date Diagnosis [...] Insured Coverage Start Date Coverage End Date [place] [address] [place] [phone] [id number] Shayy Kim Self - patient is the insured Medical (General) History Medical History History ICD Code Anxiety Depression type II diabetes Headaches/Migraines chronic sinusitis Surgical History Surgery Date(Month/Year) Hospitalization History Reason Date(Month/Year) [facility] (child 11/03
--- OUTSIDE RECORDS SUMMARY | 2024-07-14 09:06 | XMS_ITS ---
Author Organization [facility] Address [address] [place] [address] Care Team Providers Care Concrete Pavement Installer Name Role Phone Anna Falk Primary Care Provider Unavailab Darleen Mishra Unavailable [phone] Dmitriy Malik Unavailable [phone] Allergies Allergen (clinical drug ingredient) Drug/Non Drug [...] 01/26/2024 Encounters Encounter Location Date Provider Diagnosis [facility] [address] [place] [address] 01/26/2024 Dmitriy Malik Cellulitis of left toe [...] Progress Notes * JULIOSheaOB:2000 (23 yo F)Acc No.[id number]:01/26/2024 Progress Note Patient:?Shayy Kim Provider:?Dmitriy KingOMI :2000???Age:23 Y???Sex:Female D ate:01/26/2024 Address:[address] [place], [place] [id number] Pcp:Anna Falk Subjective: * Chief Complaints: * [...] medeiros Surgical History * Hospitalization/Major Diagno stic Procedure:?[facility] (child 11/04/2023 * Family History:?Mother: hermelinda [...] kg. * Examination: ???Ophthalmology Referral: ?DIABETES EYE EXAM?Diabetic Retinopathy Screening:?Yes ?Findings of Diabetic Eye Exam:?no retinopathy?Abscess/infected nail: ?INSPECTION? Reveals nail incurvation, pain on [...] surgical procedures to prevent recurrence.? * Procedure Codes:?32607 DRAIN AGE OF SKIN ABSCESS, Modifiers: TA * Follow Up:?2 Weeks * Images: * Sign off status: Completed true * Provider:?Dmitriy Malik DPM Date:? 024 Generated for Sridhar tan/Trish/Breana on:?07/14/2024 09:06 AM EDT History and Physical Notes * HPI (History [...]
[2024-07-14 11:42] LABS: Alanine Aminotransferase 34 U/L (0-31); Albumin Level 4.5 g/dL (3.5-5.0); Alkaline Phosphatase 97 U/L (39-117); Aspartate Amino Transferase 38 U/L (5-31); Bilirubin Direct 0.1 mg/dL (0.0-0.5); Bilirubin Total 0.3 mg/dL (0.0-1.0); Cholesterol 226 mg/dL (<200); HDL Cholesterol 46 mg/dL (>40); LDL Cholesterol Calculated 131 mg/dL (<100); Total Protein 7.6 g/dL (6.5-8.0); Triglycerides 248 mg/dL (<150)
[2024-07-14 11:52] LABS: Creatinine Urine 207.51 mg/dL; Microalbum/Creatinine Ratio Ur 53.4 ug/mg cr (<30)
== END 2024-07-14 09:05 | disposition home or self-care (01) ==
LOC: HO.HMGCLDS 09:04
PROVIDERS: PCP Nurse Practitioner Family; Visit Provider Nurse Practitioner Family
DX: R03.0 Elevated blood-pressure reading, without diagnosis of hypertension (principal); R74.01 Elevation of levels of liver transaminase levels; E78.5 Hyperlipidemia, unspecified; R80.9 Proteinuria, unspecified
CPT/HCPCS: 36415; 80061; 80076; 82043; 82570

== ENCOUNTER 2024-07-16 15:42 | Outpatient (AMB) | payer OTHER, SELFPAY ==
--- NOTE | 2024-07-16 15:44 | A.OFFPC_ITS ---
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: No Is last menstrual period known: Yes Last menstrual period: 06/24/24 Post menopausal: No Patient : No Allergies amoxicillin [From Augmentin] Allergy (Mild, Verified 07/16/24 16:07) Itching clavulanic acid [From Augmentin] Allergy (Mild, Verified 07/16/24 16:07) Itching Medication List - Last Reconciled 07/16/24 by Simona Marx CNP bupropion HCl XL 150 mg PO DAILY medroxyprogesterone 10 mg PO DAILY metformin 850 mg PO BID 30 days semaglutide 1 mg (0.75 mL) subcut QWEEK 4 weeks sertraline 50 mg PO DAILY 30 days Tobacco use date assessed: 07/16/24 Dental Screening Dental Screen Date: 07/16/24 Did you have a dental visit in the last 12 months?: Yes Did you have a dental problem in the last 6 months where you did not have access to dental care?: No Was dental information given to patient?: Patient has dentist HPI HPI Comments History of Present Illness Details 24-year-old female, accompanied by her s on, presents for DM, HLD, transaminitis, anxiety, and microalbuminuria follow-up. She admits to taking her medications as prescribed without adverse reactions. She notes that her mood is generally well controlled. She started seeing a psychiatrist via telehalth and was prescribed Buproprion 150 mg daily. She is also on Sertraline 50 mg daily. She offers no complaints and denies acute symptoms at this time. [facility] Medical History (Updated 05/09/24 @ 16:24 by Simona Marx CNP) Type 2 diabetes mellitus Depression Anxiety Family History (Updated 03/26/24 @ 11:24 by Salina Shen MA) Father Substance abuse Mental illness in member of household High blood pressure High cholesterol Diabetes Paternal Aunt Mental illness in member of household Paternal Grandfather Mental illness in member of household High blood pressure High cholesterol Diabetes Paternal Uncle Mental illness in member of household Social History Housing: House Patient Tobacco Use Status: Never used Tobacco e-Cigarette/Vaping Use: Never Used Second Hand Smoke Exposure: No service: No Current occupational status: employed 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 1. Little interest or pleasure in doing things: not at all 2. Feeling down, depressed, or hopeless: several days 3. Trouble falling or staying asleep, or sleeping too much: not at all 4. Feeling tired or having little energy: not at all 5. Poor appetite or overeating: not at all 6. Feeling bad about yourself - or that you are a failure or have let yourself or your family down: not at all 7. Trouble concentrating on things, such as reading the newspaper or watching television: several days 8. Moving or speaking so slowly that other people could have noticed. Or the opposite - being so fidgety or restless that you have been moving around a lot more than usual: not at all 9. Thoughts that you would be better off or of hurting yourself in some way: not at all Total score: 2 Depression Screening Interpretation: Negative Depression Screening Done: Yes 71894 - PHQ-9 Billing: Patient declined-do not bill Source: Developed by Drs. Eh Deras, Naty Pop, Jamal Frank and colleagues, with an educational coleman from [employer]. Thrive Questionnaire Date Thrive assessed: 03/26/24 YUKO-7 AMB Questionnaire YUKO-7 Date YUKO - 7 assessed: 07/16/24 Feeling nervous, anxious, or on edge: 1 = Several days Not being able to stop or control worryin = Several days Worrying too much about different things: 0 = Not at all Trouble relaxin = Not at all Being so restless that it is hard to sit still: 0 = Not at all Becoming easily annoyed or irritable: 1 = Several days Feeling afraid as if something awful might happen: 0 = Not at all Total YUKO-7 score (0-4 normal; 5-9 mild; 10-14 moderate; 15-21 severe): 3 Source: Developed by Drs. Eh Deras, Naty Pop, Jamal Frank and colleagues, with an educational coleman from [employer] YUKO-7 Assessment Billing YUKO-7 Assessment Tool: YUKO-7 Assessment 95412 Review of Systems Const Details: Const Denies chills, Denies fatigue, Denies fever(s), Denies headache(s) and Denies weakness ENT Denies dizziness and Denies headache(s) Card Denies chest pain, Denies lightheadedness, Denies dyspnea and Denies other (Palpitations) Resp Denies cough, Denies dyspnea, Denies wheezing and Denies other ( shortness of breath) GI Denies abdominal pain, Denies melena, Denies hematochezia, Denies change in bowel habits, Denies dyspepsia and Denies nausea Denies hematuria and Denies dysuria Musc Denies abnormal gait, Denies myalgias, Denies arthralgias, Denies numbness and Denies tingling Skin/Breast Denies rash, Denies unusual bruising and Denies wounds Neuro Denies abnormal gait, Denies dizziness, Denies headache(s), Denies memory loss, Denies numbness, Denies Sensory deficit (Neuro), Denies tingling and Denies weakness Psych Denies anxiety, Denies depression, Denies memory loss Endo Denies cold intolerance, Denies fatigue, Denies heat intolerance, Denies polydipsia and Denies polyuria Aller/Immun Denies wheezing Physical exam (Primary Care) Vital Signs: Last Vital Signs Temp 98.2 F 07/16/24 15:54 Pulse 87 07/16/24 15:54 Resp 16 07/16/24 15:54 BP 133/75 07/16/24 15:54 Pulse Ox 98 07/16/24 15:54 Oxygen Delivery Method Room Air 07/16/24 15:54 BMI result Body Mass Index 44.4 Tobacco/Smoking Status: Tobacco use Status Tobacco use date assessed 07/16/24 07/16/24 15:51 Patient Tobacco Use Status Never used Tobacco 07/16/24 15:47 e-Cigarette/Vaping Use Never Used 07/16/24 15:47 Depression Screening Interpretation: Negative Thrive Assessment: Date of Thrive Assessment Date Thrive assessed 03/26/24 07/16/24 15:47 Const Other: General: no acute distress and well developed Nutritional Appearance: well nourished Orientation/consciousness: patient oriented x3 [facility] Head: Yes normocephalic and Yes atraumatic Eyes General: appearance normal, both eyes and all related structures Pupils: Equal, round and reactive pupils present EOM: EOMs intact bilaterally Resp Effort & Inspection: normal respiratory effort Auscultation: clear to auscultation bilaterally Cardio Rate: regular rate Rhythm: regular rhythm Heart sounds: S1 normal heart sound present, S2 normal heart sound present, no gallops, no murmurs and no rubs GI Palpation (GI): No Abdominal aortic bruit present, Soft to palpation, nontender, No hepatosplenomegaly present and No Rebound tenderness present Auscultation: normal bowel sounds General: Yes no CVA tenderness Back/Spine/Pelvis Back: no CVA tenderness Cervical Spine: cervical ROM normal and No Cervical spine tenderness Thoracic/Lumbar Spine: thoraco-lumbar ROM normal, No pain with thoraco-lumbar ROM, No thoracic spinal tenderness and No lumbar spinal tenderness Extrem General: Yes normal to inspection, No edema and No calf tenderness Skin General: warm and dry. Normal skin color. Normal skin turgor Lesions: no lesions Rashes: no rashes Trauma: no lacerations or abrasions Wounds: no wounds Nails: normal Neuro General: patient oriented x3, gait normal and no focal neuro deficit Cranial nerves: Yes Equal, round and reactive pupils present Cognition (Neuro): normal cognition Gait exam (Neuro): Normal gait present Sensory Exam: No Sensory deficit (Neuro) Psych Appearance: grossly normal Affect: normal affect Attitude: cooperative Thought process: Normal thought process present Results AMB Hemoglobin A1c AMB Hemoglobin A1c 8.0 % Last Edit by Abi Lyons CMA on 07/16/24 16:14 Results Reviewed Results Reviewed: Laboratory Last Values Hgb A1c (Clinic) 8.0 % (4.0-6.0) H 07/16/24 16:11 Coding Level of Care Code Est Pt Level 4 (53509) Diagnoses Type 2 diabetes mellitus E11.9 Hyperlipidemia E78.5 Anxiety and depression F41.9; F32.A Transaminitis R74.01 Microalbuminuria R80.9 Additional Codes YUKO-7 Assessment Billing - YUKO-7 Assessment Tool: YUKO-7 Assessment 10731 ([id number]) Assessment & Plan Assessment & Plan (1) Type 2 diabetes mellitus: Code(s): E11.9 - Type 2 diabetes mellitus without complications Category: Medical Plan: A1c today is 8.0%, above goal of less than 7.0%. Previous A1c was 9.8% Semaglutide was recently increase from 0.5-0.75; advised to take as prescribed. Continue to take metformin as prescribed. ADA diet and routine exercise encouraged. Follow-up in 3 months or sooner with symptoms or concerns. Verbalized understanding and agreed with treatment plan. (2) Hyperlipidemia: Code(s): E78.5 - Hyperlipidemia, unspecified Category: Medical Plan: Recent triglyceride levels elevated, 248 from 3034, total cholesterol is elevated, 226 from 223, LDL level is elevated, 131 from 113, HDL level was normal. LDL goal is less than 100. Will start atorvastatin 20 mg daily; advised to take as prescribed. Advised to limit foods high in saturated fat and avoid foods high in trans fat. Routine exercise encouraged. Fast for 10-12 hours, may drink water, and perform lipid panel blood in 2 months. Will review results and make changes as needed. Verbalized understanding and agreed with the plan. (3) Anxiety and depression: Code(s): F41.9 - Anxiety disorder, unspecified; F32.A - Depression, unspecified Category: Medical Plan: Controlled anxiety and depressive symptoms. Continue current treatment regimen. Routine exercise encouraged. Follow-up with psychiatrist as planned. Verbalized understanding and agreed with treatment plan. (4) Transaminitis: Code(s): R74.01 - Elevation of levels of liver transaminase levels Category: Medical Plan: Recent AST and ALT level are elevated, 38 and 34 respectively, previous levels were 39 and 46 respectively. Hepatic steatosis is likely. Routine exercise and diet, including low-fat and encouraged. Will monitor lipid panel level periodically or symptomatic or concerns. Verbalized understanding and agreed with the plan. (5) Microalbuminuria: Code(s): R80.9 - Proteinuria, unspecified Category: Medical Plan: Recent urine microalbumin/creatinine ratio is elevated, 53.4 from 110.8. Continue current treatment regimen. Adequate hydration encouraged. Will recheck urine microalbumin/creatinine and make changes as needed. Verbalized understanding and agreed with the plan. Orders: Orders AMB Hemoglobin A1c Today E11.9 - Type 2 diabetes mellitus without complications Lipid Panel 2 Months E78.5 - Hyperlipidemia, unspecified Microalbumin, Random (w Creat) 2 Months R80.9 - Proteinuria, unspecified Medications: New atorvastatin 20 mg PO BEDTIME 30 days 30 tabs 3RF Refilled semaglutide x 4 weeks 1 mg (0.75 mL) subcut QWEEK 4 weeks 3 mL 3RF
[2024-07-16 15:54] VITALS: BP 133/75; PULSE 87; RESP 16; TEMP 36.8; O2SAT 98; BMI 44.4
--- OUTSIDE RECORDS SUMMARY | 2024-07-16 18:06 | XMS_ITS | Patient Health Record ---
[facility] Organization [facility] Address [address] [place] [address] Care Team Providers Care Business Analyst Project Manager Name Role Phone Anna Falk Primary Care Provider Unavailab Darleen Mishra Unavailable [phone] Dmitriy Malik Unavailable [phone] Allergies Allergen (clinical drug ingredient) Drug/Non Drug [...] Problem Status W/U Status Risk Notes Problem [id number] Type 2 diabetes mellitus without complication, without long-term current use of insulin (E11.9) Active confirmed Vital Signs Height 5ft 3in in 01/26/2024 Weight 250 lbs 01/26/2024 BMI 44.28 kg/m2 01/26/2024 Encounters Encounter Location Date Provider Diagnosis [facility] [address] [address] 01/26/2024 Dmitriy Malik Cellulitis of left toe L03.032 and Abscess of toe of left foot L02.612 [facility] [address] 02/09/2024 Darleen Fair Assessments Encounter Date Diagnosis [...] Insured Coverage Start Date Coverage End Date [employer] [address] [place] [phone] [id number] Shayy Kim Self - patient is the insured Medical (General) History Medical History History ICD Code Anxiety Depression type II diabetes Headaches/Migraines chronic sinusitis Surgical History Surgery Date(Month/Year) Hospitalization History Reason Date(Month/Year) [facility] (child 11/03
--- OUTSIDE RECORDS SUMMARY | 2024-07-16 18:06 | XMS_ITS ---
Author Organization [facility] Address [address] [place] [address] Care Team Providers Care Watermelon Inspector Name Role Phone Anna Falk Primary Care Provider Unavailab Darleen Mishra Unavailable [phone] Dmitriy Malik Unavailable [phone] Allergies Allergen (clinical drug ingredient) Drug/Non Drug [...] 01/26/2024 Encounters Encounter Location Date Provider Diagnosis [facility] [address] [place] [address] 01/26/2024 Dmitriy Malik Cellulitis of left toe [...] Progress Notes * JULIOSheaOB:2000 (23 yo F)Acc No.[id number]:01/26/2024 Progress Note Patient:?Shayy Kim Provider:?Dmitriy KingOMI :2000???Age:23 Y???Sex:Female D ate:01/26/2024 Address:[address] [place], [place] [id number] Pcp:Anna Falk Subjective: * Chief Complaints: * [...] medeiros Surgical History * Hospitalization/Major Diagno stic Procedure:?[facility] (child 11/04/2023 * Family History:?Mother: hermelinda [...] surgical procedures to prevent recurrence.? * Procedure Codes:?13226 DRAIN AGE OF SKIN ABSCESS, Modifiers: TA * Follow Up:?2 Weeks * Images: * Sign off status: Completed true * Provider:?Dmitriy Malik DPM Date:? 024 Generated for Sridhar tan/Trish/Breana on:?07/16/2024 06:06 PM EDT History and Physical Notes * HPI [...]
--- OUTSIDE RECORDS SUMMARY | 2024-07-16 18:06 | XMS_ITS ---
Author Organization [facility] Address [address] [place] [address] Care Team Providers Care Sales Service Coordinator Name Role Phone Anna Falk Primary Care Provider UnavailDarleen Hui [phone] Encounters Encounter Location Date Provider Diagnosis [facility] [address] [place] [address] 02/10/2024 Darleen Fair Plan Of Treatment No Information Progress Notes * Larry KIMonDOB:2000 (24 yo F)Acc No.[id number]:02/10/2024 Progress Notes Patient:?Shayy KIM Provider:?Darleen Fair DPM :2000???Age:23 Y???Sex:Female D ate:02/10/2024 Address: [address] [id number] Pcp:Anna Falk Subjective: * Chief Complaints: * ??? * Medical History:? Objective: * Vitals:? Assessment: Plan: * Treatment: * Images: * The named appointment provid er may or may not be the originator of this progress note, and it is not deemed complete until electronically signed by the appointment provider. Sign off status: Pending * Provider:?Darleen Fair DPM Date:?11/2023 Generated for Printi ng/Fakareng/eTransmitting on:?07/16/2024 06:05 PM EDT
--- OUTSIDE RECORDS SUMMARY | 2024-07-16 18:06 | XMS_ITS ---
Author Organization [facility] Address [address] [place] [address] Care Team Providers Care Luggage Liner Name Role Phone Anna Falk Primary Care Provider Darleen Johnson [phone] REASON FOR VISIT Cancel Encounters Encounter Location Date Provider Diagnosis [facility] [address] [place] [address] 02/09/2024 Darleen Fair Plan Of Treatment No Information Progress Notes * Shakir KIMemeterioonDOB:2000 (23 yo F)Acc No.[id number]:02/09/2024 Patient:?Shayy Kim :2000???Age:23 Y???Sex:Female Address[address] [place], [address] * true * Date:? Generated for Printi britney/Trish/eTransmitting on:?07/16/2024 06:05 PM EDT
== END 2024-07-16 16:31 | disposition home or self-care (01) ==
LOC: HO.HMCFM 15:42
PROVIDERS: PCP Nurse Practitioner Family; Visit Provider Nurse Practitioner Family
DX: E11.9 Type 2 diabetes mellitus without complications (principal); E78.5 Hyperlipidemia, unspecified; F41.9 Anxiety disorder, unspecified; F32.A Depression, unspecified; R74.01 Elevation of levels of liver transaminase levels; R80.9 Proteinuria, unspecified

== ENCOUNTER → 2024-07-16 15:42 | Outpatient (BNVA) | payer OTHER, SELFPAY | PROVIDERS: PCP Nurse Practitioner Family; Visit Provider Nurse Practitioner Family | DX: E11.9 Type 2 diabetes mellitus without complications (principal); E78.5 Hyperlipidemia, unspecified; F41.9 Anxiety disorder, unspecified; F32.A Depression, unspecified; R74.01 Elevation of levels of liver transaminase levels; R80.9 Proteinuria, unspecified; Z79.84 Long term (current) use of oral hypoglycemic drugs | CPT/HCPCS: 83036; 96127 ==

== ENCOUNTER 2024-10-15 11:07 | Outpatient (REF) | payer OTHER, SELFPAY ==
--- OUTSIDE RECORDS SUMMARY | 2024-02-10 08:45 | XMS_ITS ---
Author Organization [facility] Address [address] [place] [address] Care Team Providers Care Milking Machine Technician Name Role Phone Anna Falk Primary Care Provider UnavailDarleen Hui Unavailable [phone] Encounters Encounter Location Date Provider Diagnosis [facility] [address] [place] [address] 02/10/2024 Darleen Fair Plan Of Treatment No Information Progress Notes * Larry KIMonDOB:2000 (24 yo F)Acc No.[id number]:02/10/2024 Progress Notes Patient: Shayy WALSH Provider: Lam Fair DPM :2000 A ge:23 Y S ex:Female Date:02/10/2024 Address:[address] [place] Pcp:Anna Falk Subjective: * Chief Complaints: * [...] 04/11/2023 Generated for Printi ng/Faxing/eTransmitting on: 0 10/15/2024 12:13 PM EDT
[2024-10-15 14:39] LABS: Microalbum/Creatinine Ratio Ur 25.6 ug/mg cr (<30)
[2024-10-15 14:49] LABS: Cholesterol 151 mg/dL (<200); HDL Cholesterol 44 mg/dL (>40); Triglycerides 128 mg/dL (<150)
== END 2024-10-15 11:08 | disposition home or self-care (01) ==
LOC: HO.HMGCLDS 11:07
PROVIDERS: PCP Nurse Practitioner Family; Visit Provider Nurse Practitioner Family
DX: E78.5 Hyperlipidemia, unspecified (principal); R80.9 Proteinuria, unspecified
CPT/HCPCS: 36415; 80061; 82043; 82570

== ENCOUNTER 2024-10-16 08:17 | Outpatient (AMB) | payer OTHER, SELFPAY ==
--- OUTSIDE RECORDS SUMMARY | 2024-02-10 08:45 | XMS_ITS ---
Author Organization [facility] Address [address] [place] [address] Care Team Providers Care Projects Manager Name Role Phone Anna Falk Primary Care Provider UnavailDarleen Hui Unavailable [phone] Encounters Encounter Location Date Provider Diagnosis [facility] [address] [place] [address] 02/10/2024 Darleen Fair Plan Of Treatment No Information Progress Notes * Larry KIMonDOB:2000 (24 yo F)Acc No.[id number]:02/10/2024 Progress Notes Patient: Shayy WALSH Provider: Lam Fair DPM :2000 A ge:23 Y S ex:Female Date:02/10/2024 Address:[address] [place] Pcp:Anna Falk Subjective: * Chief Complaints: * * Medical History: Objective: * Vitals: Assessment: Plan: * Treatment: * Images: * The named appointment provid er may or may not be the originator of this progress note, and it is not deemed complete until electronically signed by the appointment provider. Sign off status: Pending * Provider: Lam Fair DPM Date: 04/11/2023 Generated for Printi ng/Faxing/eTransmitting on: 0 10/16/2024 08:24 AM EDT
--- NOTE | 2024-10-16 08:19 | MHC.PC.OV ---
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 Required: No Is last menstrual period known: Yes Last menstrual period: 09/13/24 Post menopausal: No Patient : No Allergies amoxicillin (From Augmentin) Allergy (Mild, Verified 10/16/24 08:47) Itching clavulanic acid (From Augmentin) Allergy (Mild, Verified 10/16/24 08:47) Itching Medication List - Last Reconciled 10/16/24 by Simona Marx CNP atorvastatin 20 mg PO BEDTIME 30 days bupropion HCl XL 150 mg PO DAILY medroxyprogesterone 10 mg PO DAILY metformin 850 mg PO BID 30 days semaglutide 1 mg (0.75 mL) subcut QWEEK 4 weeks sertraline 50 mg PO DAILY 30 days Tobacco use date assessed: 10/16/24 Dental Screening Dental Screen Date: 10/16/24 Did you have a dental visit in the last 12 months?: Yes Did you have a dental problem in the last 6 months where you did not have access to dental care?: No Was dental information given to patient?: Patient has dentist HPI HPI Comments History of Present Illness Details 24-year-old female, accompanied by her daughter, presents for diabetes, hyperlipidemia, and microalbuminuria follow-up. She admits to taking her medications as prescribed without adverse reactions. She notes that she has been making healthy dietary choices and walking regularly. She offers no complaints and denies acute symptoms at this time. [facility] Medical History (Updated 05/09/24 @ 16:24 by Simona Marx CNP) Type 2 diabetes mellitus Depression Anxiety Family History (Updated 03/26/24 @ 11:24 by Salina Shen MA) Father Substance abuse Mental illness in member of household High blood pressure High cholesterol Diabetes Paternal Aunt Mental illness in member of household Paternal Grandfather Mental illness in member of household High blood pressure High cholesterol Diabetes Paternal Uncle Mental illness in member of household Social History Housing: House Patient Tobacco Use Status: Never used Tobacco e-Cigarette/Vaping Use: Never Used Second Hand Smoke Exposure: No service: No Current occupational status: employed 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 Current occupational exposures/hazards: No Cognitive needs: No Hearing needs: No Vision needs: Yes Female Reproductive History Menstrual Date of last menstrual period: 09/13/24 Questionnaire Thrive Questionnaire Date Thrive assessed: 05/02/24 I am a: Patient What is your living situation today?: I have a steady place to live Within the past 12 months, did the food you bought not last and you didn't have the money to get more?: Never true Within the past 12 months, did you worry whether your food would run out before you got money to buy more?: Never true Do you have trouble paying for medicines?: No Do you have trouble getting transportation to medical appointments?: No Do you have trouble paying your heating and electricity bill?: No Do you have trouble taking care of your child, family member or friend?: No Do you have trouble with day-to-day activities such as bathing, preparing meals, shopping, managing finances, etc.?: No Are you currently unemployed and looking for a job?: No Are you interested in more education?: No Please select the resources that you would like help with: None Currently or been in a relationship where the following occur: No concerns reported THRIVE Score: 0 YUKO-7 AMB Questionnaire YUKO-7 Date YUKO - 7 assessed: 07/16/24 Source: Developed by Drs. Eh Deras, Naty Pop, Jamal Frank and colleagues, with an educational coleman from [employer]. Review of Systems Const Details: Const Denies chills, Denies fatigue, Denies fever(s), Denies headache(s) and Denies weakness ENT Denies dizziness and Denies headache(s) Card Denies chest pain, Denies lightheadedness, Denies dyspnea and Denies other (Palpitations) Resp Denies cough, Denies dyspnea, Denies wheezing and Denies other ( shortness of breath) GI Denies abdominal pain, Denies melena, Denies hematochezia, Denies change in bowel habits, Denies dyspepsia and Denies nausea Denies hematuria and Denies dysuria Musc Denies abnormal gait, Denies myalgias, Denies arthralgias, Denies numbness and Denies tingling Skin/Breast Denies rash, Denies unusual bruising and Denies wounds Neuro Denies abnormal gait, Denies dizziness, Denies headache(s), Denies memory loss, Denies numbness, Denies Sensory deficit (Neuro), Denies tingling and Denies weakness Psych Denies anxiety, Denies depression, Denies memory loss Endo Denies cold intolerance, Denies fatigue, Denies heat intolerance, Denies polydipsia and Denies polyuria Aller/Immun Denies wheezing Physical exam (Primary Care) Vital Signs: Last Vital Signs Temp 98.3 F 10/16/24 08:24 Pulse 88 10/16/24 08:24 Resp 16 10/16/24 08:24 BP 128/73 10/16/24 08:24 Pulse Ox 98 10/16/24 08:24 Oxygen Delivery Method Room Air 10/16/24 08:24 BMI result Body Mass Index 42.4 Tobacco/Smoking Status: Tobacco use Status Tobacco use date assessed 10/16/24 10/16/24 08:27 Patient Tobacco Use Status Never used Tobacco 10/16/24 08:21 e-Cigarette/Vaping Use Never Used 10/16/24 08:21 Thrive Assessment: Date of Thrive Assessment Date Thrive assessed 05/02/24 10/16/24 08:21 Currently or been in a relationship where the following occur: No concerns reported Const Other: General: no acute distress and well developed Nutritional Appearance: well nourished Orientation/consciousness: patient oriented x3 HENMT Head: Yes normocephalic and Yes atraumatic Eyes General: appearance normal, both eyes and all related structures Pupils: Equal, round and reactive pupils present EOM: EOMs intact bilaterally Resp Effort & Inspection: normal respiratory effort Auscultation: clear to auscultation bilaterally Cardio Rate: regular rate Rhythm: regular rhythm Heart sounds: S1 normal heart sound present, S2 normal heart sound present, no gallops, no murmurs and no rubs GI Palpation (GI): No Abdominal aortic bruit present, Soft to palpation, nontender, No hepatosplenomegaly present and No Rebound tenderness present Auscultation: normal bowel sounds General: Yes no CVA tenderness Back/Spine/Pelvis Back: no CVA tenderness Cervical Spine: cervical ROM normal and No Cervical spine tenderness Thoracic/Lumbar Spine: thoraco-lumbar ROM normal, No pain with thoraco-lumbar ROM, No thoracic spinal tenderness and No lumbar spinal tenderness Extrem General: Yes normal to inspection, No edema and No calf tenderness Skin General: warm and dry. Normal skin color. Normal skin turgor Neuro General: patient oriented x3, gait normal and no focal neuro deficit Cranial nerves: Yes Equal, round and reactive pupils present Cognition (Neuro): normal cognition Gait exam (Neuro): Normal gait present Sensory Exam: No Sensory deficit (Neuro) Psych Appearance: grossly normal Affect: normal affect Attitude: cooperative Thought process: Normal thought process present Results AMB Hemoglobin A1c AMB Hemoglobin A1c 7.6 % Last Edit by Salina Shen MA on 10/16/24 09:12 Coding Level of Care Code Est Pt Level 4 (02533) Diagnoses Type 2 diabetes mellitus E11.9 Hyperlipidemia E78.5 Microalbuminuria R80.9 Assessment & Plan Assessment & Plan (1) Type 2 diabetes mellitus: Code(s): E11.9 - Type 2 diabetes mellitus without complications Category: Medical Plan: A1c today is 7.6%, above goal of less than 7.0%. Previous A1c was 8.0%. Will increase semaglutide to to mg weekly; advised to administer as prescribed. Continue to take metformin 850 mg twice daily. ADA diet and routine exercise encouraged. Follow-up in 3 months or sooner with symptoms or concerns. Verbalized understanding and agreed with the plan. (2) Hyperlipidemia: Code(s): E78.5 - Hyperlipidemia, unspecified Category: Medical Plan: Recent lipid panel level was normal. Continue to take atorvastatin as prescribed. Advised to limit foods high in saturated fat and avoid foods high in trans fat. Routine exercise encouraged. Will monitor cholesterol level in 6 months. Verbalized understanding and agreed with the plan. (3) Microalbuminuria: Code(s): R80.9 - Proteinuria, unspecified Category: Medical Plan: Recent urine microalbumin/creatinine ratio is normal. Adequate hydration encouraged. Will monitor urine microalbumin annually. Verbalized understanding and agreed with the plan. Orders: Orders AMB Hemoglobin A1c Today Z13.9 - Encounter for screening, unspecified Medications: New semaglutide 2 mg (0.75 mL) subcut QWEEK 3 mL 3RF 4 weeks Discontinued semaglutide x 4 weeks Discontinued Reason: Doctor's Order 1 mg (0.75 mL) subcut QWEEK 4 weeks 3 mL 3RF
[2024-10-16 08:24] VITALS: BP 128/73; PULSE 88; RESP 16; TEMP 36.8; O2SAT 98; BMI 42.4
== END 2024-10-16 08:57 | disposition home or self-care (01) ==
LOC: HO.HMCFM 08:18
PROVIDERS: PCP Nurse Practitioner Family; Visit Provider Nurse Practitioner Family
DX: E11.9 Type 2 diabetes mellitus without complications (principal); E78.5 Hyperlipidemia, unspecified; R80.9 Proteinuria, unspecified; Z13.9 Encounter for screening, unspecified

== ENCOUNTER → 2024-10-16 08:17 | Outpatient (BNVA) | payer OTHER, SELFPAY | PROVIDERS: PCP Nurse Practitioner Family; Visit Provider Nurse Practitioner Family | DX: E11.9 Type 2 diabetes mellitus without complications (principal); E78.5 Hyperlipidemia, unspecified; R80.9 Proteinuria, unspecified | CPT/HCPCS: 83036 ==